=== PATIENT | male | born 1945 | race Caucasian/White ===

== ENCOUNTER 2021-02-16 14:36 | Inpatient (IN) | payer MEDICARE ==
[~2021-02-16] VITALS: Ht 175.3 cm; Wt 71.7 kg
[2021-02-16 15:09] LABS: BASOPHILS # (AUTO) 0.1 X10'3 (0-0.2); BASOPHILS % (AUTO) 0.9 % (0-1); EOSINOPHILS # (AUTO) 0.2 X10'3 (0-0.9); EOSINOPHILS % (AUTO) 2.2 % (0-6); HEMATOCRIT 43.3 % (42.0-52.0); HEMOGLOBIN 14.1 g/dl (14.0-17.9); LYMPHOCYTES % (AUTO) 9.5 % (21-51); MEAN CORPUSCULAR HEMOGLOBIN 31.1 PG (27.0-31.0); MEAN CORPUSCULAR HGB CONC 32.5 g/dL (33.0-36.5); MEAN CORPUSCULAR VOLUME 95.9 FL (78-98); MEAN PLATELET VOLUME 8.4 FL (7.4-10.4); MONOCYTES # (AUTO) 1.2 X10'3 (0-0.9); MONOCYTES % (AUTO) 11.1 % (2-12); NEUTROPHILS # (AUTO) 7.9 X10'3 (1.8-7.7); NEUTROPHILS % (AUTO) 76.3 % (42-75); PLATELET COUNT 349 X10'3 (140-440); RED BLOOD COUNT 4.52 X10'6 (4.70-6.10); RED CELL DISTRIBUTION WIDTH 16.2 % (11.5-14.5); WHITE BLOOD COUNT 10.4 X10'3 (4.5-11.0)
[2021-02-16] MEDS ORDERED: furosemide 10 MG/1 ML 10ml inj IV ONE (15:10)
[2021-02-16] MEDS ORDERED: nitroGLYCERIN 1gm ointment UD TP ONE (15:10)
[2021-02-16 15:27] LABS: ALANINE AMINOTRANSFERASE 15 U/L (12-78); ALBUMIN 2.7 G/DL (3.4-5.0); ALBUMIN/GLOBULIN RATIO 0.6 (1.1-1.5); ALKALINE PHOSPHATASE 82 IU/L (46-116); ANION GAP 5 (8-16); ASPARTATE AMINO TRANSFERASE 17 U/L (10-37); BILIRUBIN,TOTAL 0.5 MG/DL (0.1-1.0); BLOOD UREA NITROGEN 19 MG/DL (7-18); CHLORIDE 107 MMOL/L (99-107); CREATININE 1.46 MG/DL (0.60-1.10); GLUCOSE 100 MG/DL (70-104); POTASSIUM 4.3 MMOL/L (3.5-5.1); SODIUM 137 MMOL/L (135-145); TOTAL CARBON DIOXIDE 24.6 MMOL/L (24-32); TOTAL PROTEIN 7.4 G/DL (6.4-8.2); eGFR 47 ML/MIN
[2021-02-16] MEDS ORDERED: ondansetron/PF 4mg/2ml inj IV PRN (16:30)
[2021-02-16] MEDS ORDERED: acetaminophen 325mg tablet PO PRN (16:30)
[2021-02-16] MEDS ORDERED: mag hydrox/Alum hydrox/simeth 30ml oral suspension PO PRN (16:30)
[2021-02-16] MEDS ORDERED: magnesium hydroxide 30ml (MOM) UD suspension PO PRN (16:30)
[2021-02-16] MEDS ORDERED: morphine 2 MG/ML inj. syringe IV PRN ×2 (16:30)
[2021-02-16] MEDS ORDERED: IRON15TA3 PO (16:31)
[2021-02-16] MEDS ORDERED: CLOP75TA15 PO (16:31)
[2021-02-16] MEDS ORDERED: ROSU40TA PO (16:31)
[2021-02-16] MEDS ORDERED: ACYC-129 PO (16:31)
[2021-02-16] MEDS ORDERED: VIT1TABL66 (16:31)
[2021-02-16] MEDS ORDERED: CARV-50 PO (16:31)
[2021-02-16] MEDS ORDERED: FLO0.4C PO (16:31)
[2021-02-16] MEDS ORDERED: NORT75CA PO (16:31)
[2021-02-16] MEDS ORDERED: HYDR-3965 PO (16:31)
[2021-02-16] MEDS ORDERED: DOCU-148 PO (16:31)
[2021-02-16] MEDS ORDERED: LISI20TA28 PO (16:31)
[2021-02-16] MEDS ORDERED: BACL20TA PO (16:31)
[2021-02-16] MEDS ORDERED: HYDROcodone/acetaminophen 5mg/325mg tablet PO PRN (18:00)
[2021-02-16] MEDS ORDERED: baclofen 10mg tablet PO PRN (18:00)
--- NOTE | 2021-02-16 18:28 | NUR ---
ASKED RX TO CHANGE ZOXIRAX TO PRN, UPDATED MED REC.
[2021-02-16] MEDS: enoxaparin 30mg/0.3ml syringe SQ SCH (20:00)
[2021-02-16] MEDS: carVEDilol 12.5mg tablet PO SCH (20:00)
[2021-02-16] MEDS: furosemide 10 MG/1 ML 10ml inj IV SCH (20:00)
[2021-02-16] MEDS: docusate sod 100mg capsule PO SCH (20:00)
[2021-02-16 22:00] VITALS: BP 137/95
[2021-02-17] VITALS (8 sets, daily range): BP systolic 102–152; BP diastolic 70–98
[2021-02-17 01:44] LABS: BASOPHILS # (AUTO) 0.1 X10'3 (0-0.2); BASOPHILS % (AUTO) 1.5 % (0-1); EOSINOPHILS # (AUTO) 0.3 X10'3 (0-0.9); EOSINOPHILS % (AUTO) 2.9 % (0-6); HEMATOCRIT 43.6 % (42.0-52.0); HEMOGLOBIN 14.4 g/dl (14.0-17.9); LYMPHOCYTES % (AUTO) 11.1 % (21-51); MEAN CORPUSCULAR HEMOGLOBIN 31.2 PG (27.0-31.0); MEAN CORPUSCULAR HGB CONC 32.9 g/dL (33.0-36.5); MEAN CORPUSCULAR VOLUME 94.8 FL (78-98); MEAN PLATELET VOLUME 8.7 FL (7.4-10.4); MONOCYTES % (AUTO) 10.9 % (2-12); NEUTROPHILS # (AUTO) 6.6 X10'3 (1.8-7.7); NEUTROPHILS % (AUTO) 73.6 % (42-75); PLATELET COUNT 342 X10'3 (140-440); RED CELL DISTRIBUTION WIDTH 16.1 % (11.5-14.5); WHITE BLOOD COUNT 8.9 X10'3 (4.5-11.0)
[2021-02-17 01:56] LABS: ALBUMIN 2.7 G/DL (3.4-5.0); ANION GAP 10 (8-16); BLOOD UREA NITROGEN 21 MG/DL (7-18); BUN/CREATININE RATIO 15.2 (5.4-32.0); CALCIUM 9.6 MG/DL (8.5-10.1); CHLORIDE 106 MMOL/L (99-107); CREATININE 1.38 MG/DL (0.60-1.10); GLUCOSE 111 MG/DL (70-104); POTASSIUM 3.5 MMOL/L (3.5-5.1); SODIUM 142 MMOL/L (135-145); TOTAL CARBON DIOXIDE 26.1 MMOL/L (24-32); eGFR 51 ML/MIN
[2021-02-17] MEDS: acetaminophen 325mg tablet PO PRN ×3 (03:27→11:45)
[2021-02-17] MEDS: carVEDilol 12.5mg tablet PO SCH ×2 (07:31→19:54)
[2021-02-17] MEDS: furosemide 10 MG/1 ML 10ml inj IV SCH ×2 (07:31→20:00)
[2021-02-17] MEDS: docusate sod 100mg capsule PO SCH ×2 (07:31→19:55)
[2021-02-17] MEDS: atorvastatin 20mg tablet PO SCH (07:31)
[2021-02-17] MEDS: lisinopril 20mg tablet PO SCH (07:32)
[2021-02-17] MEDS: enoxaparin 30mg/0.3ml syringe SQ SCH ×2 (08:00→19:54)
[2021-02-17] MEDS ORDERED: IRON CARBONYL 15 MG PO SCH (08:00)
[2021-02-17] MEDS: clopidogrel 75mg tablet PO SCH (08:00)
[2021-02-17] MEDS ORDERED: ACYC200C PO (11:16)
[2021-02-17] MEDS ORDERED: acyclovir 200 MG capsule PO PRN (11:17)
[2021-02-17] MEDS ORDERED: fentaNYL/PF 50MCG/1 ML 2ML syringe ONE (14:27)
[2021-02-17] MEDS ORDERED: heparin 1,000unit/ml 10ml vial 10 ML ONE (14:27)
[2021-02-17] MEDS ORDERED: LIDOcaine 1% (10mg/ml)w/preservative injection 20ml MDV ONE (14:27)
[2021-02-17] MEDS ORDERED: iohexol 350 MG/ML 50ML vial IV ONE ×2 (14:27→15:28)
[2021-02-17] MEDS ORDERED: midazolam 1 mg/ML 2ml injection ONE (14:27)
[2021-02-17] MEDS ORDERED: iohexol 350MG/ML 100ml bottle IV ONE (14:28)
[2021-02-17] MEDS ORDERED: ondansetron/PF 4mg/2ml inj IV PRN (17:10)
[2021-02-17] MEDS ORDERED: HYDROcodone/acetaminophen 5mg/325mg tablet PO PRN (17:10)
[2021-02-17] MEDS ORDERED: HYDROcodone/acetaminophen 10/325mg tab PO PRN (17:10)
[2021-02-17] MEDS ORDERED: proCHLORperazine 10 MG/2 ml inj IV PRN (17:10)
[2021-02-17] MEDS: normal saline 1000ml 1,000 ML IV SCH ×2 (17:15→22:10)
[2021-02-17] MEDS ORDERED: furosemide 40mg/4ml inj IV ONE (18:00)
[2021-02-18 03:00] VITALS: BP 124/80
[2021-02-18] MEDS: normal saline 1000ml 1,000 ML IV SCH (03:10)
[2021-02-18 06:00] VITALS: BP 147/93
[2021-02-18 07:19] LABS: BASOPHILS % (AUTO) 0.4 % (0-1); EOSINOPHILS # (AUTO) 0.2 X10'3 (0-0.9); EOSINOPHILS % (AUTO) 2.2 % (0-6); HEMATOCRIT 41.5 % (42.0-52.0); HEMOGLOBIN 13.6 g/dl (14.0-17.9); LYMPHOCYTES # (AUTO) 1.2 X10'3 (1.1-4.8); LYMPHOCYTES % (AUTO) 11.1 % (21-51); MEAN CORPUSCULAR HGB CONC 32.8 g/dL (33.0-36.5); MEAN CORPUSCULAR VOLUME 94.6 FL (78-98); MEAN PLATELET VOLUME 8.8 FL (7.4-10.4); MONOCYTES # (AUTO) 1.5 X10'3 (0-0.9); MONOCYTES % (AUTO) 13.3 % (2-12); NEUTROPHILS # (AUTO) 8.2 X10'3 (1.8-7.7); PLATELET COUNT 323 X10'3 (140-440); RED BLOOD COUNT 4.39 X10'6 (4.70-6.10); RED CELL DISTRIBUTION WIDTH 15.8 % (11.5-14.5); WHITE BLOOD COUNT 11.2 X10'3 (4.5-11.0)
[2021-02-18] MEDS: lisinopril 20mg tablet PO SCH (07:23)
[2021-02-18] MEDS: clopidogrel 75mg tablet PO SCH (07:23)
[2021-02-18] MEDS: docusate sod 100mg capsule PO SCH (07:23)
[2021-02-18] MEDS: furosemide 10 MG/1 ML 10ml inj IV SCH (07:23)
[2021-02-18] MEDS: carVEDilol 12.5mg tablet PO SCH (07:23)
[2021-02-18] MEDS: enoxaparin 30mg/0.3ml syringe SQ SCH (07:23)
[2021-02-18] MEDS: atorvastatin 20mg tablet PO SCH (07:23)
[2021-02-18 07:43] LABS: ALBUMIN 2.5 G/DL (3.4-5.0); ANION GAP 7 (8-16); BLOOD UREA NITROGEN 23 MG/DL (7-18); BUN/CREATININE RATIO 14.8 (5.4-32.0); CALCIUM 9.5 MG/DL (8.5-10.1); CHLORIDE 105 MMOL/L (99-107); CHOL/HDL RATIO 3.8 (0.00-4.99); CHOLESTEROL 171 MG/DL (0-200); CREATININE 1.55 MG/DL (0.60-1.10); GLUCOSE 98 MG/DL (70-104); HDL CHOLESTEROL 45 MG/DL (35-60); LDL CHOLESTEROL 103 MG/DL (50-100); POTASSIUM 4.2 MMOL/L (3.5-5.1); SODIUM 142 MMOL/L (135-145); TOTAL CARBON DIOXIDE 30.4 MMOL/L (24-32); TRIGLYCERIDES 94 MG/DL (20-135); eGFR 44 ML/MIN
[2021-02-18] MEDS ORDERED: spironolactone 25 MG tablet PO SCH (08:30)
[2021-02-18] MEDS ORDERED: SPIR25TA PO (10:04)
[2021-02-18] MEDS ORDERED: FURO40TA4 PO (10:04)
--- NOTE | 2021-02-20 16:19 | NUR ---
CASE MANAGEMENT DISCHARGE FOLLOW UP: T/c to pt, no answer, left message requesting callback. 1621 Received return phone call, spoke with via telephone. Reports that SOB improving, BPs "pretty good"; denies swelling, CP, weakness. Admits to some dizziness when first starting new meds but it has improved. Verbalizes understanding of s/sx requiring further evaluation/emergent assistance. Verbalizes understanding of new and current medications. Verbalizes compliance with MD discharge instructions. Verbalizes understanding of the importance in making/keeping follow-up appointments, will see contract paralegal on 02/22/21. States no further questions/concerns at this time.
== END 2021-02-18 11:00 | disposition home or self-care (01) | DRG 286 ==
LOC: ER 14:36 → ED HOLD 16:27 → PCU 3S 19:35
PROVIDERS: ADMIT Family Medicine; ATTEND Family Medicine
PROC: 4A023N7 Measurement of Cardiac Sampling and Pressure, Left Heart, Percutaneous Approach (ICD-10-PCS; principal; 2021-02-17)
PROC: B2111ZZ Fluoroscopy of Multiple Coronary Arteries using Low Osmolar Contrast (ICD-10-PCS; 2021-02-17)
PROC: B2151ZZ Fluoroscopy of Left Heart using Low Osmolar Contrast (ICD-10-PCS; 2021-02-17)
PROC: B2131ZZ Fluoroscopy of Multiple Coronary Artery Bypass Grafts using Low Osmolar Contrast (ICD-10-PCS; 2021-02-17)
DX: I13.0 Hypertensive heart and chronic kidney disease with heart failure and stage 1 through stage 4 chronic kidney disease, or unspecified chronic kidney disease (principal); I50.23 Acute on chronic systolic (congestive) heart failure; N17.9 Acute kidney failure, unspecified; I25.110 Atherosclerotic heart disease of native coronary artery with unstable angina pectoris; E78.00 Pure hypercholesterolemia, unspecified; E78.5 Hyperlipidemia, unspecified; G89.29 Other chronic pain; N18.30 Chronic kidney disease, stage 3 unspecified; M54.9 Dorsalgia, unspecified; N40.0 Benign prostatic hyperplasia without lower urinary tract symptoms; Z86.79 Personal history of other diseases of the circulatory system; I25.2 Old myocardial infarction; Z95.1 Presence of aortocoronary bypass graft
CPT/HCPCS: 36415; 71045; 80048; 80053; 80061; 83880; 84484; 85025; 87081; 93005; 93459; 96361; 96372; 96374; 96375; 96376; 99152; 99153; 99285; A4620; A6258; C1760; C1769; C1894; G0378; J1644; J1650; J1940; J2001; J2250; J3010; J7030; Q9967